=== PATIENT | female | born 1970 | race Caucasian/White ===

== ENCOUNTER 2022-11-08 09:17 | Outpatient (CLI) | payer BC, MEDICAID, SELFPAY ==
[2022-11-08 14:35] LABS: Albumin* 4.5 g/dL (3.3-5.0); Chloride* 105 mmol/L (96-114); Sodium* 139 mmol/L (135-149)
[2022-11-08 14:36] LABS: Potassium* 4.3 mmol/L (3.6-5.1)
[2022-11-08 14:38] LABS: Alanine Aminotransferase* 20 U/L (4-35); Alkaline Phosphatase* 51 U/L (40-150); Aspartate Amino Transferase* 23 U/L (12-35); Bilirubin Total* 0.8 mg/dL (0.1-1.5); Blood Urea Nitrogen* 13 mg/dL (7-30); Carbon Dioxide* 27 mmol/L (20-32); Creatinine* 0.7 mg/dL (0.5-1.5); Estimated Glomerular Filt Rate 104 ml/min; Glucose* 94 mg/dL (60-115); Total Protein* 6.8 g/dL (6.0-8.3)
[2022-11-08 15:07] LABS: Vitamin D 25 Hydroxy* 39 ng/mL (30-80)
[2022-11-08 15:21] LABS: TSH With Reflex to FT4* 0.937 uIU/mL (0.270-4.200)
[2022-11-09 16:45] LABS: Cholesterol* 188 mg/dL (90-199)
[2022-11-09 16:46] LABS: HDL Cholesterol* 89 mg/dL (>=50); LDL Cholesterol Calculated 90 mg/dL (<100); Triglycerides* 45 mg/dL (40-149)
== END 2022-11-08 09:18 | disposition home or self-care (01) ==
PROVIDERS: PCP Physician Assistant Medical; Visit Provider Physician Assistant Medical
DX: Z01.419 Encounter for gynecological examination (general) (routine) without abnormal findings (principal); D64.9 Anemia, unspecified; F32.A Depression, unspecified; Z13.6 Encounter for screening for cardiovascular disorders
CPT/HCPCS: 80053; 80061; 82306; 84443

== ENCOUNTER 2022-12-13 14:52 | Outpatient (CLI) | payer BC, MEDICAID, SELFPAY ==
--- NOTE | 2022-12-13 15:00 | CRLHL7_ITS ---
For Patients: As a result of the Century Cures Act, medical imaging exams and procedure reports are released immediately into your electronic medical record. You may view this report before your referring provider. If you have questions, please contact your health care provider. BILATERAL SCREENING MAMMOGRAM WITH COMPUTER-AIDED DETECTION AND TOMOSYNTHESIS TECHNIQUE: CC and MLO views were obtained. These mammographic images have been obtained using full-field digital technique. These mammographic images were interpreted with the benefit of computer-aided detection. Breast Tomosynthesis was used in this interpretation. COMPARISON FILM: 09/23/21, 09/21/20, [place] 01/23/19. FINDINGS: The breasts are heterogeneously dense, which may obscure small masses IMPRESSION: There is no radiographic evidence for malignancy. ASSESSMENT: BI-RADS Category 1: Negative RECOMMENDATION: Routine screening mammogram in 1 year. A lay language report of this examination will be provided to the patient. José Mir M.D. Diagnostic/Nuclear Medicine Radiologist [email or web address] SEAN/Dictated by: José Mir MD @ 12/14/2022 8:24:00 AM (Electronically Signed)
== END 2022-12-13 14:53 | disposition home or self-care (01) ==
LOC: MAMMO 14:53
PROVIDERS: PCP Physician Assistant Medical; Visit Provider Physician Assistant Medical
DX: Z12.31 Encounter for screening mammogram for malignant neoplasm of breast (principal); R92.2 Inconclusive mammogram
CPT/HCPCS: 77063; 77067

== ENCOUNTER 2023-06-17 19:19 | Outpatient (CLI) | payer BC, SELFPAY ==
--- NOTE | 2023-06-27 08:10 | W.PM.SLEEP ---
Sleep Study Details Details Interpreting Provider: James Date of Sleep Study: 06/17/23 Sleep Study Details: STUDY TYPE:? Home unattended ? BMI:? 25.4 ORDERING PROVIDER:Jeffrey Moran INDICATION:? Concerns about sleep apnea ? SLEEP SUMMARY:? 616.9 minutes monitored RESPIRATORY SUMMARY:? AHI 3.1. Low oxygen 90 Snoring 0.1% PERIODIC LIMB MOVEMENTS OF SLEEP:? Not recorded during home study CARDIAC:? Range 46-88, mean 55.8 IMPRESSION:? This study does not demonstrate significant obstructive sleep apnea. If sleep disorder is strongly suspected would recommend an in-lab study. RECOMMENDATION: See impression
== END 2023-06-17 19:20 | disposition home or self-care (01) ==
PROVIDERS: PCP Physician Assistant Medical; Visit Provider Physician Assistant Medical
DX: G47.33 Obstructive sleep apnea (adult) (pediatric) (principal)
CPT/HCPCS: 95806

== ENCOUNTER 2024-02-13 15:00 | Outpatient (CLI) | payer BC, SELFPAY ==
--- NOTE | 2024-02-13 15:20 | MM_ITS ---
Patient: DOROTHEA CHAVIS Facility:?[facility] Patient ID:?[id number] Site Patient ID:?[id number]. Site :?[id number] Study:?XRay-Breast Bilateral 3D W/CAD-02/13/2024 3:34:22 PM Ordering Physician:Sinan Hurtado Final Report: BILATERAL SCREENING MAMMOGRAM WITH COMPUTER-AIDED DETECTION AND TOMOSYNTHESIS TECHNIQUE: CC and MLO views were obtained. These mammographic images have been obtained using full-field digital technique. These mammographic images were interpreted with the benefit of computer-aided detection. Breast Tomosynthesis was used in this interpretation. COMPARISON FILM: 12/13/22, 09/23/21, 09/21/20. FINDINGS: The breasts are heterogeneously dense, which may obscure small masses IMPRESSION: There is no radiographic evidence for malignancy. ASSESSMENT: BI-RADS Category 2: Benign RECOMMENDATION: Routine screening mammogram in 1 year. A lay language report of this examination will be provided to the patient. Willian Garcia M.D. Diagnostic Radiologist [email or web address] Transcribed: 2:19 p.mJesus cahpa/Dictated by: Willian Garcia MD @ 02/20/2024 1:02:00 PM Signed by:?Willian Garcia MD @02/20/2024 3:07:29 PM (Electronic Signature)
== END 2024-02-13 15:01 | disposition home or self-care (01) ==
LOC: MAMMO 15:00
PROVIDERS: PCP Physician Assistant Medical; Visit Provider Physician Assistant Medical
DX: Z12.31 Encounter for screening mammogram for malignant neoplasm of breast (principal); R92.2 Inconclusive mammogram
CPT/HCPCS: 77063; 77067

== ENCOUNTER 2024-06-04 09:58 | Outpatient (CLI) | payer BC, SELFPAY | END 2024-06-04 09:59 | disposition home or self-care (01) | PROVIDERS: PCP Physician Assistant Medical; Visit Provider Obstetrics & Gynecology | DX: Z01.419 Encounter for gynecological examination (general) (routine) without abnormal findings (principal) | CPT/HCPCS: 82670; 83001; 84443 ==

== ENCOUNTER 2025-03-18 11:10 | Outpatient (CLI) | payer BC, SELFPAY ==
--- NOTE | 2025-03-18 11:30 | CRLHL7_ITS ---
For Patients: As a result of the Century Cures Act, medical imaging exams and procedure reports are released immediately into your electronic medical record. You may view this report before your referring provider. If you have questions, please contact your health care provider. INDICATION: BILATERAL SCREENING MAMMOGRAM, ASYMPOTMATIC 54 Y/O FEMALE COMPARISON: 02/13/24, 12/13/22, 09/23/21 TECHNIQUE: CC and MLO views were obtained. These mammographic images have been obtained using full-field digital technique. These mammographic images were interpreted with the benefit of computer aided detection and tomosynthesis. BREAST COMPOSITION: The breasts are heterogeneously dense, which may obscure small masses. FINDINGS: No suspicious findings. ASSESSMENT: BI-RADS 2 Benign RECOMMENDATION: Annual screening mammogram. A lay language report of this examination will be provided to the patient. Dictated by: Willian Garcia MD @ 03/26/2025 12:48:33 (Electronically Signed)
== END 2025-03-18 11:11 | disposition home or self-care (01) ==
PROVIDERS: PCP Family Medicine; Visit Provider Family Medicine
DX: Z12.31 Encounter for screening mammogram for malignant neoplasm of breast (principal); R92.333 Mammographic heterogeneous density, bilateral breasts
CPT/HCPCS: 77063; 77067